=== PATIENT | male | born 1995 | race Two or more races ===

== ENCOUNTER 2024-07-18 17:01 | Emergency (ER) | payer SELFPAY ==
--- NOTE | 2024-07-18 17:08 | US_ITS ---
[address] [address] Patient Name: BISHOP CORCORAN MRN: [id number] date: 1995 Sex: M Assigned Patient Location: ER Current Patient Location: Accession/Order Number: [id number] Exam Date: 07/18/2024 18:19 Report Date: 07/18/2024 20:51 At the request of: SKIP VILLATORO Procedure: US scrotum SCROTAL ULTRASOUND. HISTORY: Pain. COMPARISON: None. TECHNIQUE: High frequency grayscale and color Doppler sonographic imaging. FINDINGS: Right testis: 4.5 x 2.4 x 4.0 cm. Epididymis: Normal. Hydrocele: None. Varicocele present. Masses: None. Vascularity: Normal arterial blood flow. Left testis: 4.1 x 2.1 x 3.8 cm. Epididymis: Normal. Hydrocele: None. Varicocele present. Masses: None. Vascularity: Normal arterial blood flow. Additional Findings: none US/US scrotum IMPRESSION: 1. Unremarkable testes and epididymides. 2. Bilateral varicoceles. Electronically authenticated by: ESTEBAN BARRETT Date: 07/18/2024 20:51
[2024-07-18 17:17] VITALS: BP 144/90; PULSE 62; TEMP 36.6; O2SAT 100; BMI 23.0
[2024-07-18 17:46] LABS: Bilirubin Urine NEGATIVE (NEGATIVE); Blood Urine NEGATIVE (NEGATIVE); Clarity Urine CLEAR (CLEAR); Color Urine LT. YELLOW (YELLOW); Glucose Urine UA NEGATIVE (NEGATIVE); Ketones Urine NEGATIVE (NEGATIVE); Leukocyte Esterase Urine NEGATIVE (NEGATIVE); Nitrite Urine NEGATIVE (NEGATIVE); Protein Urine NEGATIVE (NEG/TRACE); Urobilinogen Urine 0.2 EU/dL (0.2-1.0)
[2024-07-18 17:54] LABS: Bacteria Urine NONE SEEN #/HPF (NONE SEEN); Cast Seen? NONE SEEN #/LPF (NONE SEEN); Crystals Seen? None Seen #/HPF (None Seen); Mucus Urine NONE SEEN (NONE SEEN); RBC Urine 0-2 #/HPF (0-2); Squamous Epithelial Cell Urine RARE #/LPF (NONE/RARE); Urine Culture Indicated NO; WBC Urine 0-2 #/HPF (NONE SEEN)
--- NOTE | 2024-07-18 20:37 | PC.NURSE ---
PT C/O PAINFUL URINATION AND GENITAL RASH
--- NOTE | 2024-07-18 20:42 | ED_ITS ---
HPI HPI - General Adult General Chief complaint: Urogenital-Male Stated complaint: Testicular Pain Time Seen by Provider: 07/18/24 20:36 Source: patient Mode of arrival: walk-in Limitations: no limitations History of Present Illness HPI narrative: 28-year-old male presents to the emergency department for a chief complaint of rash. It is in the right pubic area and he has had it for 2 days. It is a little bit pruritic. No penile drainage or hematuria. He does not complain to me of scrotal pain. Related Data Home Medications ?Medication ?Instructions ?Recorded ?Confirmed No Known Home Medications 07/18/24 07/18/24 Previous Rx's ?Medication ?Instructions ?Recorded cephalexin 500 mg capsule 500 mg PO QID 10 days #40 caps 07/18/24 sulfamethoxazole 800 1 tab PO BID 10 days #20 tabs 07/18/24 mg-trimethoprim 160 mg tablet (Bactrim DS) Allergies Allergy/AdvReac Type Severity Reaction Status Date / Time No Known Drug Allergies Allergy Verified 07/18/24 17:17 Opioid HPI Opioid Management Most Recent Opioid Data: No Data to Display Review of Systems ROS Narrative A ten point review of systems is negative except as noted above. PFSH PFSH Social History Little interest or pleasure in doing things: not at all Feeling down, depressed, or hopeless: not at all Exam Narrative Exam Narrative: Nurses note and vital signs reviewed and patient is not hypoxic. General: The patient appears well and in no apparent distress. Patient is resting comfortably on cart. Skin: Warm, dry, no pallor noted. There is no rash noted. Head: Normocephalic, atraumatic Eye: Normal conjunctiva, no drainage Ears, Nose, Mouth, and Throat: oral mucosa is moist. Nares patent. Cardiovascular: Regular Rate and Rhythm Respiratory: Patient is in no distress, no accessory muscle use Back: non-tender GI: Normal bowel sounds, no tenderness to palpation, no masses appreciated. No rebound, guarding, or rigidity noted. : No scrotal masses or swelling or tenderness. On the right suprapubic area is an area of erythema with a few raised areas consistent with folliculitis. There is no open area or drainage. There is no fluctuance. Musculoskeletal: No joint Neurological: Awake and alert Psychiatric: Cooperative Constitutional Vital Signs, click to edit/add: Last Vital Signs Temp 97.9 F 02/10/25 17:17 Pulse 62 07/18/24 17:17 Resp 20 07/18/24 17:17 BP 144/90 H 07/18/24 17:17 Pulse Ox 100 07/18/24 17:17 O2 Del Method Room Air 07/18/24 17:17 Course Vital Signs Vital signs: Vital Signs Temperature 97.9 F 07/18/24 17:17 Pulse Rate 62 07/18/24 17:17 Respiratory Rate 20 07/18/24 17:17 Blood Pressure 144/90 H 07/18/24 17:17 Pulse Oximetry 100 07/18/24 17:17 Oxygen Delivery Method Room Air 07/18/24 17:17 Temperature 97.9 F 07/18/24 17:17 Pulse Rate 62 07/18/24 17:17 Respiratory Rate 20 07/18/24 17:17 Blood Pressure 144/90 H 07/18/24 17:17 Pulse Oximetry 100 07/18/24 17:17 Oxygen Delivery Method Room Air 07/18/24 17:17 Medical Decision Making MDM Narrative Medical decision making narrative: My clinical impression is that he has cellulitis with folliculitis as well. I have no clinical suspicion of herpes zoster or sexually transmitted disease at this point. Treatment diagnosis and follow-up were discussed with the patient and he was prescribed Bactrim and Keflex. Differential Diagnosis Differential Diagnosis: Cellulitis, folliculitis Lab Data Lab results reviewed: Yes I reviewed the patient's lab results Labs: Lab Results 07/18/24 Range/Units 17:27 Urine Color Lt. yellow (YELLOW) Urine Clarity Clear (CLEAR) Urine pH 6.0 (5.0-9.0) Ur Specific [place] 1.010 (1.005-1.025) Urine Protein Negative (NEG/TRACE) mg/dL Urine Glucose (UA) Negative (NEGATIVE) mg/dL Urine Ketones Negative (NEGATIVE) mg/dL Urine Occult Blood Negative (NEGATIVE) Urine Nitrite Negative (NEGATIVE) Urine Bilirubin Negative (NEGATIVE) Urine Urobilinogen 0.2 (0.2-1.0) EU/dL Ur Leukocyte Esterase Negative (NEGATIVE) Urine RBC 0-2 (0-2) #/HPF Urine WBC 0-2 A (NONE SEEN) #/HPF Ur Squamous Epith Cells Rare (NONE/RARE) #/LPF Urine Crystals None seen (None Seen) #/HPF Urine Bacteria None seen (NONE SEEN) #/HPF Urine Casts None seen (NONE SEEN) #/LPF Urine Mucus None seen (NONE SEEN) Ur Culture Indicated? No Discharge Plan Discharge Chief Complaint: Urogenital-Male Clinical Impression: Cellulitis Patient Disposition: Home, Self-Care Time of Disposition Decision: 20:41 Prescriptions / Home Meds: New sulfamethoxazole-trimethoprim [Bactrim DS] 800-160 mg tablet 1 tab PO BID 10 Days Qty: 20 0RF cephalexin 500 mg capsule 500 mg PO QID 10 Days Qty: 40 0RF No Action No Known Home Medications Print Language: Amharic Instructions: Cellulitis (ED), Warm Compress or Soak (ED) Referrals: Physician,Non-Staff, MD [Primary Care Provider] - 1 week
[2024-07-21 06:10] LABS: Neisseria gonorrhoeae, NAA Negative (Negative)
== END 2024-07-18 20:47 | disposition home or self-care (01) ==
PROVIDERS: Emergency Medicine; Physician Assistant; Emergency Provider Emergency Medicine
DX: N49.2 Inflammatory disorders of scrotum (principal); L73.9 Follicular disorder, unspecified
CPT/HCPCS: 76870; 81001; 87491; 87591; 99284